=== PATIENT | male | born 1935 | race Caucasian/White ===

== ENCOUNTER 2020-11-22 16:19 | Inpatient (IN) | payer MEDICARE ==
[~2020-11-22] VITALS: Ht 170.2 cm; Wt 86.8 kg
[~2020-11-22 16:19] MED LIST: PROTONIX40 M2 PO
--- NOTE | 2020-11-22 17:05 | NUR ---
PT TO ROOM # 11 VIA W/C FOR BEDSIDE TRIAGE
--- NOTE | 2020-11-22 17:39 | NUR ---
BEDSIDE WITH PATIENT
[2020-11-22 17:45] LABS: HEMATOCRIT 34.1 % (39.0-50.0); HEMOGLOBIN 11.7 g/dl (14.0-18.0); IMMATURE GRANULOCYTES 1.4 % (0.0-5.0); MEAN CELL VOLUME 87.9 fL CALC (80.0-100.0); MEAN CORPUSCULAR HGB 30.2 pG CALC (26.0-32.0); MEAN CORPUSCULAR HGB CONC 34.3 g/dL CAL (32.0-36.0); NEUT# 13.1 thou/uL (1.82-7.42); RED BLOOD COUNT 3.88 mill/uL (4.70-6.10); RED CELL DISTRI WIDTH 12.6 % (11.5-15.5)
[2020-11-22 18:00] LABS: ALBUMIN 3.9 g/dL (3.2-5.0); BUN 11 mg/dL (8-23); BUN/CREATININE RATIO 16 (12-20 (CALC)); CARBON DIOXIDE 29 mmol/l (22-30); CREATININE 0.7 mg/dL (0.7-1.3); GFR > 60 ML/MIN (>=60 (CALC)); GFR FOR AFR.AMER. > 60 ML/MIN (>=60 (CALC)); POTASSIUM 4.8 mmol/l (3.5-5.1); SGOT/AST 26 u/l (19-48); TOTAL PROTEIN 7.6 g/dL (6.3-8.2)
[2020-11-22 18:04] LABS: ALKALINE PHOSPHATASE 109 u/l (38-126); ANION GAP 13 (6-22 (CALC)); BILIRUBIN, TOTAL 0.5 mg/dL (0.0-1.4); CHLORIDE 81 mmol/l (95-108); SODIUM 118 mmol/l (137-146)
[2020-11-22 18:21] LABS: URINE BILIRUBIN - DIPSTICK NEGATIVE (NEGATIVE); URINE BLOOD DIPSTICK NEGATIVE (NEGATIVE); URINE COLOR YELLOW; URINE GLUCOSE - DIPSTICK NEGATIVE (NEGATIVE); URINE KETONE NEGATIVE (NEGATIVE); URINE LEUK ESTERASE NEGATIVE (NEGATIVE); URINE NITRITE - DIPSTICK NEGATIVE (Negative); URINE PROTEIN - DIPSTICK 100 mg/dL (NEG-TRACE); URINE SPECIFIC GRAVITY >=1.030; URINE UROBILINOGEN - DIPSTICK 0.2 E.U./dL (0.2)
[2020-11-22 18:24] LABS: URINE RBC 0-2 RBC/hpf (0-5); URINE WBC 0-2 WBC/hpf (0-5)
--- NOTE | 2020-11-22 19:11 | NUR ---
REPORT TO NIGHT NURSE
--- NOTE | 2020-11-22 19:15 | NUR ---
COVID SWAB COLLECTED
--- NOTE | 2020-11-22 19:16 | NUR ---
IN ROOM INTRODUCED SELF TO TO PT. AND , NO C/O AT THIS TIME. V/S STABLE.
--- NOTE | 2020-11-22 20:20 | NUR ---
PT. INCONTINENT OF A MODERATE AMT. OF URINE, JUAN F CARE GIVEN.
--- NOTE | 2020-11-22 20:55 | NUR ---
UNABLE TO OBTAIN PT. HOME MEDS AT THIS TIME.
--- NOTE | 2020-11-22 21:55 | NUR ---
NO C/O AT THIS TIME, V/S STABLE. IVF INFUSING WELL, NO REDNESS OR EDEMA NOTED.
--- NOTE | 2020-11-22 22:21 | NUR ---
PT. MOVED TO ROOM 10 IN A REGULAR HOSPITAL BED FOR COMFORT.
--- NOTE | 2020-11-23 01:23 | NUR ---
RESTING QUIETLY EYES CLOSED, NO C/O AT THIS TIME. V/S STABLE.
--- NOTE | 2020-11-23 02:14 | NUR ---
PT. INCONTINENT OF A MODERATE AMT. OF URINE, JUAN F CARE GIVEN.
--- NOTE | 2020-11-23 07:01 | NUR ---
REPORT TO LUIS ARMANDO WOODRUFF.
[2020-11-23 07:45] VITALS: BP 155/72
--- NOTE | 2020-11-23 07:45 | NUR ---
REPORT RECEIVED FROM RANJAN DURÁN. [facility] PATIENT LOCATED CURRENTLY IN ER 10. 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 DENIES PAIN, BUT C/O MILD DISCOMFORT TO LEFT FOREHEAD, SHOULDER, AND HIP FROM PRIOR FALL. RESPIRATIONS EVEN AND UNLABORED ON ROOM AIR. ADMISSION ASSESSMENT COMPLETED. POC DISCUSSED. PT ENCOURAGED TO VERBALIZE CONCERNS. STATES UNDERSTANDING. SAFETY MEASURES IN PLACE. CALL LIGHT WITHIN REACH.
[2020-11-23 08:02] LABS: HEMATOCRIT 29.9 % (39.0-50.0); HEMOGLOBIN 10.2 g/dl (14.0-18.0); IMMATURE GRANULOCYTES 1.8 % (0.0-5.0); MEAN CELL VOLUME 88.5 fL CALC (80.0-100.0); MEAN CORPUSCULAR HGB 30.2 pG CALC (26.0-32.0); MEAN CORPUSCULAR HGB CONC 34.1 g/dL CAL (32.0-36.0); NEUT# 12.41 thou/uL (1.82-7.42); RED BLOOD COUNT 3.38 mill/uL (4.70-6.10); RED CELL DISTRI WIDTH 12.5 % (11.5-15.5)
--- NOTE | 2020-11-23 08:35 | NUR ---
PT PLACED CALL LIGHT FOR ASSISTANCE WITH URINAL; HAS URGENCY AND STRESS INCONTINENCE; LINENES CHANGED; PT VOIDING CLOUDY YELLOW URINE. NOW SITTING UP IN HIGH FOWLERS EATING BREAKFAST.
[2020-11-23 08:43] LABS: ALKALINE PHOSPHATASE 79 u/l (38-126); BILIRUBIN, TOTAL 0.5 mg/dL (0.0-1.4); BUN 8 mg/dL (8-23); BUN/CREATININE RATIO 15 (12-20 (CALC)); CARBON DIOXIDE 27 mmol/l (22-30); CHLORIDE 86 mmol/l (95-108); CREATININE 0.5 mg/dL (0.7-1.3); GFR > 60 ML/MIN (>=60 (CALC)); GFR FOR AFR.AMER. > 60 ML/MIN (>=60 (CALC)); POTASSIUM 4.8 mmol/l (3.5-5.1); SGOT/AST 16 u/l (19-48)
[2020-11-23 08:49] LABS: ALBUMIN 2.6 g/dL (3.2-5.0); ANION GAP 11 (6-22 (CALC)); SODIUM 119 mmol/l (137-146); TOTAL PROTEIN 5.1 g/dL (6.3-8.2)
--- NOTE | 2020-11-23 10:40 | NUR ---
PHYSICAL THERAPY AT BEDSIDE FOR EVAL.
--- NOTE | 2020-11-23 11:38 | NUR ---
DR. SPAULDING AT BEDSIDE.
[2020-11-23] MEDS ORDERED: TAMSULOSIN0.4 MG PO (11:58)
[2020-11-23] MEDS ORDERED: VALSARTAN80 MG PO (11:58)
[2020-11-23] MEDS ORDERED: LUPRON DEPOT22.5 MG IM (12:00)
[2020-11-23 13:16] VITALS: BP 147/71
--- NOTE | 2020-11-23 13:22 | NUR ---
TRANSPORTED TO [facility] ROOM 277 VIA BED IN STABLE CONDITION. TELE BOX APPLIED AND CONFIRMED. ORIENTED TO NEW ROOM AND CALL LIGHT SYSTEM.
--- NOTE | 2020-11-23 13:49 | NUR ---
UP TO BSC FOR BOWEL MOVEMENT; PT DID NOT HAVE BM AT THIS TIME. SLIGHTLY MORE CONFUSED; ANSWERS QUESTIONS, BUT NOT WITH NOT COMPLETE APPROPRIATE ANSWER. REMAINED WITH PT WHILE ON BSC AND ASSISTED BACK INTO BED. IV FLUIDS INFUSING WITHOUT DIFFICULTY; IV SITE APPEARS HEALTHY. C/O LEFT SHOULDER PAIN; MOBILITY TO LEFT ARM EFFECTED BY SHOULDER PAIN. NEURO CHECK OTHERWISE WNL FOR PATIENT.
[2020-11-23 15:33] VITALS: BP 167/79
[2020-11-23 19:00] VITALS: BP 167/95
--- NOTE | 2020-11-23 19:00 | NUR ---
REPORT RECEIVED FROM Tino BRADLEY RN, CARE OF PT ASSUMED AT THIS TIME.
--- NOTE | 2020-11-23 21:30 | NUR ---
PT LAYING IN BED WATCHING TV. PHYSICAL ASSESMENT COMPLETE. SCHEDULED MEDICATIONS ADMINISTERED, SEE E-MAR. PT MADE AWARE URINE SAMPLE NEEDS TO BE COLLECTED. PT HAS BEEN EXPERIENCING URINARY URGENCY AND INCONTINENCE. PT REQUEST ASSIST TO STAND AND ATTEMPT TO USE URINAL. WHILE ATTEMPTING TO STAND WITH ASSIST PT REPORTS HE FEELS DIZZY AND WEAK. PT ASSISTED TO LAY DOWN IN BED. URINAL PROPPED IN PLACE TO ATTEMPT TO COLLECT URINE SAMPLE. PLAN OF CARE REVIEWED, PT VERBALIZES UNDERSTANDING AND DENIES QUESTIONS. DENIES NEEDS AT THIS TIME. CALL VAN WITHIN REACH, AGREES TO CALL PRN. AGREES NOT TO ATTEMPT TO GET OOB. BED LOCKED IN LOW POSITION WITH BEDRAILS UP X2.
--- NOTE | 2020-11-24 | NUR ---
PT APPEARS TO BE SLEEPING COMFORTABLY, LAYING IN BED WITH EYES CLOSED, RESPIRATIONS REGULAR AND UNLABORED, NO APPARENT DISTRESS. CALL VAN REMAIN WITHIN REACH.
[2020-11-24 00:06] VITALS: BP 141/72
--- NOTE | 2020-11-24 04:30 | NUR ---
EDUARDO PRESS CATCHER IN ROOM TO DRAW AM LABS
[2020-11-24 05:55] VITALS: BP 142/72
[2020-11-24 06:33] LABS: ALBUMIN 2.7 g/dL (3.2-5.0); BUN 8 mg/dL (8-23); CARBON DIOXIDE 24 mmol/l (22-30); CHLORIDE 86 mmol/l (95-108); CREATININE 0.6 mg/dL (0.7-1.3); GFR > 60 ML/MIN (>=60 (CALC)); GFR FOR AFR.AMER. > 60 ML/MIN (>=60 (CALC)); POTASSIUM 4.8 mmol/l (3.5-5.1)
[2020-11-24 06:44] LABS: SODIUM 119 mmol/l (137-146)
[2020-11-24 07:15] VITALS: BP 140/70
--- NOTE | 2020-11-24 07:15 | NUR ---
PATIENT IN BED AWAKE AT THIS TIME ALERT TO NAME AND PLACE PATIENT CONFUSED ON YEAR AT THIS TIME THEN PATIENT RECANTED AND STATED THE CORRECT YEAR. SIDERAILS ARE UP X 3 CALL LIGHT IS WITHIN REACH STOCK OR DELIVERY CLERK DONE SEE INTERVENTIONS. PATIENT EXHIBITS BILATERAL LOWER LEG EDEMA 3+ GREATER IN LEFT LEG. PATIENT DENIES ANY PAIN AT THIS TIME.
[2020-11-24 10:58] VITALS: BP 148/77
--- NOTE | 2020-11-24 12:03 | NUR ---
PATIENT LAYING IN BED AT THIS TIME EATING LUNCH. CALL LIGHT IS WITHIN REACH AND SIDERAILS UP X3 WITH BED ALARM ACTIVATED. PATIENT DENEIES ANY PAIN AT THIS TIME.
--- NOTE | 2020-11-24 14:34 | NUR ---
PT NOTE Patient was supine as entered room. Patient agreed to participate in minimal bed exercises, stated he was too tired to stand. Patient executed ankle pumps, heel slides, hip abduction and straight leg raises to comfort. Patient executed exercises w/ MIN-MOD verbal cues for correct form. Attempted to encourage patient to seat at bed side to stand and he did not agree. Patient has lower extremity weakness. Tray table and call reeves by patient side as exited room. AMPAC 6 score- 12 not able to fully get full AMPAC due to not standing. --termite control technician facility
[2020-11-24 14:41] VITALS: BP 157/88
--- NOTE | 2020-11-24 16:31 | NUR ---
PATIENT UP TO BEDSIDE COMMODE AT THIS TIME PATIENT ALERT TO SELF AND PLACE AND IS CONFUSED TO DATE AND TIME. PATIENT NEURO CHECKS REMAIN UNCHANGED FROM PREVIOUS CHECK. CALL LIGHT IS WITHIN REACH, BED ALARM DETECTIVE BOWLING ALLEY SIDERAILS ARE UP X 2. PATIENT MOVING TO ROOM CLOSER TO NURSES STATION.
[2020-11-24 19:00] VITALS: BP 160/80
--- NOTE | 2020-11-24 19:00 | NUR ---
REPORT RECEIVED FROM Audrey RIOS RN, CARE OF PT ASSUMED AT THIS TIME.
--- NOTE | 2020-11-24 20:30 | NUR ---
PT SUPINE IN BED, AWAKE AND CALM, NO APPARENT DISTRESS. PHYSICAL ASSESMENT COMPLETE. SCHEDULED MEDICATIONS ADMINISTERED, SEE E-MAR. PLAN OF CARE REVIEWED WITH PT, PT IS [place] AND HAS COGNITIVE LIMITATIONS RELATED TO MEMORY. WILL NEED FREQUENT REVIEW OF CARE PLAN. AT THIS TIME PT VERBALIZES UNDERSTANDING AND DENIES QUESTIONS. DENIES NEEDS AT THIS TIME. CALL VAN WITHIN REACH, AGREES TO CALL PRN.
[2020-11-25] VITALS: BP 143/67
--- NOTE | 2020-11-25 | NUR ---
PT APPEARS TO BE SLEEPING COMFORTABLY, LAYING IN BED WITH EYES CLOSED, RESPIRATIONS REGULAR AND UNLABORED, NO APPARENT DISTRESS. CALL VAN REMAIN WITHIN REACH. BED ALARM ON. BED REMAINS LOCKED IN LOW POSITION WITH BEDRAILS UP X2.
[2020-11-25 04:00] VITALS: BP 140/78
--- NOTE | 2020-11-25 04:00 | NUR ---
PT APPEARS TO BE SLEEPING COMFORTABLY, LAYING IN BED WITH EYES CLOSED, RESPIRATIONS REGULAR AND UNLABORED, NO APPARENT DISTRESS. CALL VAN REMAIN WITHIN REACH. BED REMAINS LOCKED IN LOW POSITION WITH BEDRAIL UP X2.
[2020-11-25 06:23] LABS: HEMATOCRIT 30.6 % (39.0-50.0); HEMOGLOBIN 10.4 g/dl (14.0-18.0); IMMATURE GRANULOCYTES 1.2 % (0.0-5.0); MEAN CELL VOLUME 88.7 fL CALC (80.0-100.0); MEAN CORPUSCULAR HGB 30.1 pG CALC (26.0-32.0); NEUT# 13.65 thou/uL (1.82-7.42); RED BLOOD COUNT 3.45 mill/uL (4.70-6.10); RED CELL DISTRI WIDTH 12.7 % (11.5-15.5)
[2020-11-25 06:51] LABS: ANION GAP 11 (6-22 (CALC)); BUN 10 mg/dL (8-23); BUN/CREATININE RATIO 20 (12-20 (CALC)); CARBON DIOXIDE 24 mmol/l (22-30); CHLORIDE 88 mmol/l (95-108); CREATININE 0.5 mg/dL (0.7-1.3); GFR > 60 ML/MIN (>=60 (CALC)); GFR FOR AFR.AMER. > 60 ML/MIN (>=60 (CALC)); POTASSIUM 4.4 mmol/l (3.5-5.1)
[2020-11-25 07:00] LABS: SODIUM 119 mmol/l (137-146)
[2020-11-25 07:45] VITALS: BP 144/79
--- NOTE | 2020-11-25 07:45 | NUR ---
PATIENT SITTING UP IN BED AT THIS TIME. PATIENT IS ALERT TO NAME AND PLACE AN MONTH AT THIS TIME. PATIENT DENEIS ANY PAIN AND BILATERAL LOWER LEGS REMAIN AT 2+ EDEMA AT THIS TIME. SWELLING OVER RIGHT EYE DUE TO FALL PRIOR TO ADMISSION IS BARELY NOTED AT THIS TIME. SIDERAILS ARE UP CALL LIGHT WITHIN REACH TELE MONITORED IN PLACE.
--- NOTE | 2020-11-25 09:40 | NUR ---
PATIENT TAKEN DOWN TO [facility] FOR A CTA THIS TIME. PER WHEELCHAIR.
--- NOTE | 2020-11-25 10:08 | NUR ---
PATIENT RETURNED FROM [facility] AT THIS TIME. PATIENT DOES NOT WANT HEARING AIDS PLACED IN EARS AT THIS TIME.
[2020-11-25 10:55] VITALS: BP 135/76
--- NOTE | 2020-11-25 11:46 | NUR ---
PATIENT SITTING UP IN CHAIR AT THIS TIME. PATIENT NEURO CHECKS REMAIN UNCHANGED. GRASP ARE STRONG PATIENT IS ALERT TO NAME AND PLACE CONFUSED TO TIME AND YEAR AND MONTH. PATIENT WHEN ASKED STATES HE HAS NO PAIN. PATIENT REFUSES TO ALLOW STAFF TO PLACE HEARING AIDE IN EARS AT THIS TIME. CALL LIGHT IS WITHIN REACH OF PATIENT AND PERSONAL ITEMS WITHIN REACH.
--- NOTE | 2020-11-25 13:15 | NUR ---
Pt. seen this morning (8:30AM) for functional activity of transfer training. While long sitting in bed and with verbal encouragement and tactile cues the patient is able to move his legs to the edge of bed. At edge of bed pt. able to scoot and maintain static seated balance. Sit to stand performed with bed elevated and pt. using railing for push off x2 trials with min. assist x 1. On 3rd trial pt. provided with min. assist x 2 for guarding and instruction for turning and side stepping toward wheelchair that awaited him to go down to radiology escorted by his attending SEAM TAPER MACHINE. Pt. reminded to reach back with his hands for the wheelchair armrests to lower himself into wheelchair. Poor eccentric control is noted. Post transfer training pt. left with his attending SEAM TAPER MACHINE, leg rest provided and he was without questions/concerns. AMPAC score 12.
[2020-11-25 14:36] VITALS: BP 143/77
--- NOTE | 2020-11-25 15:49 | NUR ---
PATIENT RESTING IN BED AT THIS TIME. CALL LIGHT AND PERSONAL ITEMS WITHIN REACH. SIDERAILS ARE UP X3. BED ALARM ON AT THIS TIME. PATIENT DENIES ANY PAIN.
[2020-11-25 16:39] LABS: HEMATOCRIT 30.2 % (39.0-50.0); HEMOGLOBIN 10.1 g/dl (14.0-18.0); IMMATURE GRANULOCYTES 1.4 % (0.0-5.0); MEAN CELL VOLUME 89.1 fL CALC (80.0-100.0); MEAN CORPUSCULAR HGB 29.8 pG CALC (26.0-32.0); MEAN CORPUSCULAR HGB CONC 33.4 g/dL CAL (32.0-36.0); NEUT# 15.87 thou/uL (1.82-7.42); RED BLOOD COUNT 3.39 mill/uL (4.70-6.10); RED CELL DISTRI WIDTH 12.7 % (11.5-15.5)
--- NOTE | 2020-11-25 19:00 | NUR ---
REPORT RECEIVED FROM Audrey RIOS RN, CARE OF PT ASSUMED AT THIS TIME.
[2020-11-25 19:30] VITALS: BP 142/72
--- NOTE | 2020-11-25 19:48 | NUR ---
CONFERENCE CALL HELD WITH PT'S SPOUSE AND DAUGHTER WHOM IDENTIFIES HERSELF AN RN. DAUGHTER QUESTIONS IF ABX WOULD BE APPROPRIATE FOR PT. CONCERNS REGARDING DISCHARGE PLANNING ARE ALSO RAISED AND AND DAUGHTER ARE REQUESTING FOR TO BE ABLE TO VISIT PT. EXPLAINED THAT EXCEPTIONS TO VISITING POLICY WOULD HAVE TO BE ENDORSED TO ADMINISTRATION IN AM AND OTHER CONCERNS WOULD BE DISCUSSED WITH PROVIDER AND RETURN CALL COULD BE PROVIDED WITH UPDATES AFTERWARDS. DAUGHTER AND SPOUSE AGREE.
--- NOTE | 2020-11-25 20:25 | NUR ---
PT SUPINE IN BED, AWAKE AND CALM, NO APPARENT DISTRESS. PHYSICAL ASSESMENT COMPLETE. SCHEDULED MEDICATIONS ADMINISTERED, SEE E-MAR. PLAN OF CARE REVIEWED WITH PT, PT IS [place] AND HAS COGNITIVE LIMITATIONS RELATED TO MEMORY. WILL NEED FREQUENT REVIEW OF CARE PLAN. AT THIS TIME PT VERBALIZES UNDERSTANDING AND DENIES QUESTIONS. DENIES NEEDS AT THIS TIME. CALL VAN WITHIN REACH, AGREES TO CALL PRN.
--- NOTE | 2020-11-25 20:30 | NUR ---
FAMILIES CONCERNS DISCUSSED WITH Jose WILSON APRN, ORDERS FOR ABX ABD CASE MANAGMENT CONSULT RECEIVED.
--- NOTE | 2020-11-25 21:33 | NUR ---
UPDATES AND CHANGES TO PLAN OF CARE PROVIDED TO PT'S DAUGHTER.
[2020-11-26 00:15] VITALS: BP 138/76
[2020-11-26 04:35] VITALS: BP 146/86
[2020-11-26 05:41] LABS: HEMATOCRIT 30.2 % (39.0-50.0); HEMOGLOBIN 9.9 g/dl (14.0-18.0); MEAN CELL VOLUME 89.1 fL CALC (80.0-100.0); MEAN CORPUSCULAR HGB 29.2 pG CALC (26.0-32.0); MEAN CORPUSCULAR HGB CONC 32.8 g/dL CAL (32.0-36.0); RED BLOOD COUNT 3.39 mill/uL (4.70-6.10); RED CELL DISTRI WIDTH 12.8 % (11.5-15.5)
[2020-11-26 06:15] LABS: ALBUMIN 2.7 g/dL (3.2-5.0); ANION GAP 13 (6-22 (CALC)); BUN 12 mg/dL (8-23); BUN/CREATININE RATIO 21 (12-20 (CALC)); CARBON DIOXIDE 28 mmol/l (22-30); CHLORIDE 83 mmol/l (95-108); CREATININE 0.6 mg/dL (0.7-1.3); GFR > 60 ML/MIN (>=60 (CALC)); GFR FOR AFR.AMER. > 60 ML/MIN (>=60 (CALC)); MAGNESIUM 1.9 mg/dL (1.6-2.3); POTASSIUM 4.6 mmol/l (3.5-5.1); SODIUM 120 mmol/l (137-146)
[2020-11-26 07:30] VITALS: BP 144/86
--- NOTE | 2020-11-26 07:30 | NUR ---
PATIENT IN BED AT THIS TIME PATIENT IS ALERT TO NAME AND PLACE BUT IS CONFUSED ON TIME. PATIENT SHOWS BILATERAL 2+ LOWER EDEMA ON LEGS. LUNG FIELD ARE CLEAR. MANAGER CUSTOMS DONE AT THIS TIME CALL LIGHT AND PERSONAL ITEMS ARE WITHIN REACH SIDERAILS ARE UP X 2
--- NOTE | 2020-11-26 10:43 | NUR ---
PT note Patient is seen for transfer and functional training with strengthening He wored on bed mobility and transfers bed to chair. He required mod assist of 2 to complete transitional movemetns. His standing balance is poor and stand to sit requires VC with max assist. His Am Pac score is unchanged and he would be a great short term rehab condidate to maximize independence and reduce his burden of care Our plan is to continue physical therapy for strengthening and transfer training with pre- gait activities
[2020-11-26 10:55] VITALS: BP 139/79
--- NOTE | 2020-11-26 12:09 | NUR ---
PATIENT SITTING IN BED AT THIS TIME EATING LUNCH. PATIENT ALERT TO NAME AND PLACE BUT REMAINS CONFUSED ON DAY, TIME. SIDERAILS ARE UP X2 CALL LIGHT AND PERSONAL ITEMS WITHIN REACH.
[2020-11-26 15:07] VITALS: BP 130/66
--- NOTE | 2020-11-26 19:00 | NUR ---
REPORT RECEIVED FROM Audrey RIOS RN, CARE OF PT ASSUMED AT THIS TIME.
[2020-11-26 19:45] VITALS: BP 144/67
--- NOTE | 2020-11-26 20:15 | NUR ---
PT SUPINE IN BED, AWAKE AND CALM, NO APPARENT DISTRESS. PHYSICAL ASSESMENT COMPLETE. SCHEDULED MEDICATIONS ADMINISTERED, SEE E-MAR. PLAN OF CARE REVIEWED WITH PT, PT IS [place] AND HAS COGNITIVE LIMITATIONS RELATED TO MEMORY. WILL NEED FREQUENT REVIEW OF CARE PLAN. AT THIS TIME PT VERBALIZES UNDERSTANDING AND DENIES QUESTIONS. DENIES NEEDS AT THIS TIME. CALL VAN WITHIN REACH, AGREES TO CALL PRN.
[2020-11-27 00:10] VITALS: BP 139/73
[2020-11-27 04:25] VITALS: BP 146/67
[2020-11-27 05:37] LABS: HEMATOCRIT 29.7 % (39.0-50.0); HEMOGLOBIN 9.9 g/dl (14.0-18.0); IMMATURE GRANULOCYTES 2.2 % (0.0-5.0); MEAN CELL VOLUME 89.2 fL CALC (80.0-100.0); MEAN CORPUSCULAR HGB 29.7 pG CALC (26.0-32.0); MEAN CORPUSCULAR HGB CONC 33.3 g/dL CAL (32.0-36.0); NEUT# 13.69 thou/uL (1.82-7.42); RED BLOOD COUNT 3.33 mill/uL (4.70-6.10); RED CELL DISTRI WIDTH 12.8 % (11.5-15.5)
[2020-11-27 06:19] LABS: ALBUMIN 2.5 g/dL (3.2-5.0); ALKALINE PHOSPHATASE 75 u/l (38-126); ANION GAP 12 (6-22 (CALC)); BILIRUBIN, TOTAL 0.5 mg/dL (0.0-1.4); BUN 14 mg/dL (8-23); BUN/CREATININE RATIO 27 (12-20 (CALC)); CARBON DIOXIDE 28 mmol/l (22-30); CHLORIDE 85 mmol/l (95-108); CREATININE 0.5 mg/dL (0.7-1.3); GFR > 60 ML/MIN (>=60 (CALC)); GFR FOR AFR.AMER. > 60 ML/MIN (>=60 (CALC)); POTASSIUM 4.6 mmol/l (3.5-5.1); SGOT/AST 21 u/l (19-48); SODIUM 120 mmol/l (137-146); TOTAL PROTEIN 5.1 g/dL (6.3-8.2)
--- NOTE | 2020-11-27 07:00 | NUR ---
SHIFT CHANGE REPORT, PT RESTING IN BED, AWAKE ALERT AND ORIENTED, NO C/O DISCOMFORT AT THIS TIME, IVF INFUSING, TELE MONITOR IN PLACE, CALL VAN IN REACH.
[2020-11-27 08:34] VITALS: BP 139/80
--- NOTE | 2020-11-27 12:56 | NUR ---
SITTING UP IN RECLINER JUST BEGINNING TO EAT MEAL, C/O CHOKING AND VOMITTING , BREATHING, TALKING AND SPEECH ARE NORMAL,STATES HE HAS PIECE OF MEAT STUCK IN HIS THROAT. ADVISED TO HAVE SIP OF WATER BUT REFUSED STATING IT WILL NOT GO DOWN. CHEY VAZQUEZ NOTIFIED AND WROTE ORDERS, PT THEN HAD SIPS OF WATER WHICH HE SWALLOWED WITHOUT DIFFICULTY, INFORMED OF NEW ORDERS BUT STATES HE CAH SWALLOW NOW AND DOES NOT WANT TO HAVE AN X-RAY HE HAS SWALLED MEAT IN THROAT AND FEELS OK NOW. HE ALSO STATES HE HAS HAD THIS CONDITION BEFORE AND HAD HIS THROAT STRETCHED. HE WILL NOT HAVE AN X-RAY HE REFUSED, CHEY NOTIFIED. SPOUSE IS HERE AT TIS TIME AND CONFORMS THIS IS NOT A NEW OR UNIQUE CONDITION WITH PT, WILL CONTINUE TO MONITOR.
--- NOTE | 2020-11-27 16:00 | NUR ---
SITTING UP IN RECLINER, ALL NEEDS ADDRESSED, CALL VAN IN REACH.
[2020-11-27 16:13] VITALS: BP 122/60
--- NOTE | 2020-11-27 17:00 | NUR ---
REQUESTING TO BE ASSISTED BACK TO BED, REQUEST HONORED, CALL VAN IN REACH.
[2020-11-27 20:00] VITALS: BP 138/70
[2020-11-27 23:45] VITALS: BP 116/63
--- NOTE | 2020-11-28 01:57 | NUR ---
PATIENT IS ALERT AND ORIENTED X3 WITH INTERMITENT CONFUSION AND FORGETFULNESS. C/O PAIN ADDRESSED WITH PRN TYLENOL WITH POSITIVE EFFECT. VAD #20 RW S/L. PATENT. CONTINUES ON A 1500ML FLUID RESTRICTION. ON TELEMETRY RUNNING SR WITH 1ST DEGREE AVB AND IVCD. PATIENT KEPT ASKING FOR HIS OXYGEN. I EDUCATED PATIENT ON USE OF OXYGEN. BED IN LOW POSITION. CALL LIGHT WITHIN REACH.
[2020-11-28 04:00] VITALS: BP 126/70
[2020-11-28 05:14] LABS: HEMOGLOBIN 9.8 g/dl (14.0-18.0); IMMATURE GRANULOCYTES 2.5 % (0.0-5.0); MEAN CELL VOLUME 89.6 fL CALC (80.0-100.0); MEAN CORPUSCULAR HGB 29.3 pG CALC (26.0-32.0); MEAN CORPUSCULAR HGB CONC 32.7 g/dL CAL (32.0-36.0); NEUT# 13.77 thou/uL (1.82-7.42); RED BLOOD COUNT 3.35 mill/uL (4.70-6.10); RED CELL DISTRI WIDTH 12.9 % (11.5-15.5)
[2020-11-28 05:43] LABS: ANION GAP 11 (6-22 (CALC)); BUN 14 mg/dL (8-23); BUN/CREATININE RATIO 28 (12-20 (CALC)); CARBON DIOXIDE 27 mmol/l (22-30); CHLORIDE 87 mmol/l (95-108); CREATININE 0.5 mg/dL (0.7-1.3); GFR > 60 ML/MIN (>=60 (CALC)); GFR FOR AFR.AMER. > 60 ML/MIN (>=60 (CALC)); MAGNESIUM 1.8 mg/dL (1.6-2.3); POTASSIUM 4.3 mmol/l (3.5-5.1); SODIUM 121 mmol/l (137-146)
--- NOTE | 2020-11-28 07:00 | NUR ---
SHIFT CHANGE REPORT, PT AWAKE ALERT AND ORIENTED SITTING UP IN BED, NO C/O DISCOMFORT AT THIS TIME, TELE MONITOR IN PLACE, BED LOCKED IN LOWEST POSITION AND CALL VAN IN REACH.
[2020-11-28 07:38] VITALS: BP 142/67
--- NOTE | 2020-11-28 11:04 | NUR ---
TRANSPORTED OFF UNIT EARLIER FOR BRAIN CT AFTER INFORMED OF PROCEDURE AND STATED UNDERSTANDING, JUST RETURNED TO UNIT AND SETTLED IN BED, CALL VAN IN REACH.
[2020-11-28 11:17] VITALS: BP 132/65
--- NOTE | 2020-11-28 12:30 | NUR ---
RELAXING IN BED, ALL NEEDS ADDRESSED, SPOUSE VISITING.
[2020-11-28 15:33] VITALS: BP 139/66
--- NOTE | 2020-11-28 16:20 | NUR ---
SLEEPING IN RECLINER AT THIS TIME, NO SIGN DISCOMFORT, CALL VAN IN REACH.
--- NOTE | 2020-11-28 19:43 | NUR ---
SBAR REPORT RECEIVED FROM RANJAN SCOTT. PATIENT QUIETLY WATCHING TV IN BED. NO DISTRESS NOTED. CALL LIGHT WITHIN REACH.
[2020-11-28 20:00] VITALS: BP 154/84
[2020-11-29] VITALS: BP 134/75
--- NOTE | 2020-11-29 00:34 | NUR ---
RESTING QUIETLY IN BED. PATIENT AWAKE. DENIES PAIN AT THIS TIME. NO DISTRESS NOTED. CALL LIGHT WITHIN REACH.
[2020-11-29 04:00] VITALS: BP 136/80
[2020-11-29 05:21] LABS: HEMATOCRIT 29.4 % (39.0-50.0); HEMOGLOBIN 9.7 g/dl (14.0-18.0); MEAN CELL VOLUME 89.4 fL CALC (80.0-100.0); MEAN CORPUSCULAR HGB 29.5 pG CALC (26.0-32.0); RED BLOOD COUNT 3.29 mill/uL (4.70-6.10)
--- NOTE | 2020-11-29 05:49 | NUR ---
CONTINUES TO REST QUIETLY IN BED. NO DISTRESS NOTED, CALL LIGHT WITHIN REACH.
[2020-11-29 06:11] LABS: ANION GAP 9 (6-22 (CALC)); BUN 22 mg/dL (8-23); BUN/CREATININE RATIO 44 (12-20 (CALC)); CARBON DIOXIDE 29 mmol/l (22-30); CHLORIDE 86 mmol/l (95-108); CREATININE 0.5 mg/dL (0.7-1.3); GFR > 60 ML/MIN (>=60 (CALC)); GFR FOR AFR.AMER. > 60 ML/MIN (>=60 (CALC)); MAGNESIUM 1.8 mg/dL (1.6-2.3); POTASSIUM 4.3 mmol/l (3.5-5.1); SODIUM 120 mmol/l (137-146)
[2020-11-29 08:00] VITALS: BP 136/84
--- NOTE | 2020-11-29 08:15 | NUR ---
PATIENT RESTING IN BED DENEIS ANY PAIN SIDERAILS ARE UP CALL LIGHT WITHIN REACH BED ALARM ON. FLOOR INSTALLATION MECHANIC DONE AT THIS TIME. PATIENT ALERT TO NAME AND PLACE PATIENT HAS TRACE EDEMA ON BILATERAL FEET. PATIENT NPO FOR MODIFY SWALLOW EVAL TODAY.
[2020-11-29 11:00] VITALS: BP 150/73
--- NOTE | 2020-11-29 12:00 | NUR ---
PATIENT IN CHAIR AT THIS TIME CALL LIGHT AND PERSONAL ITEMS WITHIN REACH DENIES ANY PAIN AT THIS TIME.
--- NOTE | 2020-11-29 13:05 | NUR ---
IN TO SEE PATIENT AT THIS TIME. ASKED IF SHE COULD STAY FOR A "FEW" HOURS AND VISTIATION POLICY GONE OVER WITH PATIENT AND AT THIS TIME.
--- NOTE | 2020-11-29 13:35 | NUR ---
PHYSICAL THERAPY IN TO SEE PATIENT. THERAPIST STATED THAT PATIENT WALKED APPROXIMATELY 15-20 FEET TODAY.
--- NOTE | 2020-11-29 13:38 | NUR ---
Attempted to see pt. Pt in radiology for esophagram. F/u d/t findings in barium swallow study.
--- NOTE | 2020-11-29 13:48 | NUR ---
Pt seen this pm for treatment. Pt sitting in BS chair with present. He c/o fatigue and feeling weak from not eating much. Pt move sit to and from stand with CGA/min assist and max verbal cues. He was able to ambulate 1 x 10' and 1x 15' with CGA assist and RW. Posture was flexed in trunk and knees. Pt need to use commode chair and transferred using walker/CGA and max verbal cue for safety (push from chair to stand, reach for chair to sit etc). He was left on commode chair with call reeves in reach, present and nursing notified. Gait belt in use and non skid socks. [facility]
--- NOTE | 2020-11-29 16:10 | NUR ---
PHYSICAL THEARPY IN TO HELP PATIENT RETURN BACK TO BED AT THIS TIME. PATIENT BACK IN BED SIDERAILS ARE UP CALL LIGHT IS WITHIN REACH. PATIENT DENIES ANY OTHER NEEDS
[2020-11-29 17:16] VITALS: BP 155/81
[2020-11-29 19:00] VITALS: BP 149/72
--- NOTE | 2020-11-29 20:00 | NUR ---
PATIENT RESTING IN BED AT THIS TIME. PATIENT IS ALERT AND ORIENTED TO PERSON AND BIRTHDATE. PATIENT KNOW THAT HE IS IN THE HOSPITAL BUT THINKS THAT HE IS IN [facility]. REORIENTED TO PLACE AND TIME. PATIENT WITH SALINE LOCK TO RIGHT WRIST. SAFETY PRECAUTIONS REINFORCED. CALL LIGHT IN REACH. WILL CONT TO MONITOR.
--- NOTE | 2020-11-30 00:40 | NUR ---
RESTING IN BED AT THIS TIME WITH EYES CLOSED. RESPS ARE EVEN AND UNLABORED. ANTIBIOTICS COMPLETED VIA RIGHT WRIST IV SITE. SITE REMAINS HEALTHY. CALL LIGHT IN REACH. WILL CONT TO MONITOR.
--- NOTE | 2020-11-30 03:55 | NUR ---
PATIENT RESTING IN BED WITH EYES CLOSED. RESPS ARE EVEN AND UNLABORED. APPEARS SLEEPING IN NO ACUTE DISTRESS. SALINE LOCK TO RIGHT WRIST INTACT. CALL LIGHT IN REACH. WILL CONT TO MONITOR.
[2020-11-30 04:30] VITALS: BP 138/66
[2020-11-30 06:31] LABS: ANION GAP 12 (6-22 (CALC)); BUN 21 mg/dL (8-23); BUN/CREATININE RATIO 39 (12-20 (CALC)); CARBON DIOXIDE 28 mmol/l (22-30); CHLORIDE 86 mmol/l (95-108); CREATININE 0.5 mg/dL (0.7-1.3); GFR > 60 ML/MIN (>=60 (CALC)); GFR FOR AFR.AMER. > 60 ML/MIN (>=60 (CALC)); POTASSIUM 4.5 mmol/l (3.5-5.1); SODIUM 122 mmol/l (137-146)
--- NOTE | 2020-11-30 07:00 | NUR ---
RECIEVED REPORT FROM RANJAN GREWAL.
[2020-11-30 08:28] VITALS: BP 141/74
--- NOTE | 2020-11-30 08:28 | NUR ---
PT RESTING IN SEMI FOWLERS POSITION. PT IS A/O X3 WITH SOME CONFUSION. ASSESSMENT AND VITALS COMPLETED. BP 141/74, HR 86, O2 96% ON ROOM AIR. RESPIRATIONS ARE EVEN AND UNLABORED WITH NO DISTRESS NOTED. LUNG SOUNDS ARE CLEAR. HEART RHYTHM IS NORMAL. BOWEL SOUNDS ARE ACTIVE. RADIAL PULSES STRONG. PEDAL PULSES WEAK. #20G IN RW FLUSHED, SITE APPEARS HEALTHY AND PATENT. PT COMPLAINS OF 10/10 GERNERALIZED PAIN, PT REFUSES TO TAKE ANYTHING TO ASSIST. SKIN IS CDI. PT DENIES OF ANY ADDITIONAL NEEDS. ALL SAFETY PRECAUTIONS ARE IN PLACE WITH CALL LIGHT IN REACH. WILL CONTINUE TO MONITOR.
--- NOTE | 2020-11-30 09:00 | NUR ---
PT AT BEDSIDE
--- NOTE | 2020-11-30 09:54 | NUR ---
DR POP AT BEDSIDE
--- NOTE | 2020-11-30 13:54 | NUR ---
KATIUSKA,ANRP AT BEDSIDE
[2020-11-30 15:18] VITALS: BP 120/66
--- NOTE | 2020-11-30 16:06 | NUR ---
PT SLEEPING IN SEMI FOWLERS POSITION. RESPIRATIONS ARE EVEN AND UNLABORED ON ROOM AIR. #20G IN RW REMAIN HEALTHY AND PATENT. NO SIGNS OF OF ANY PAINS OR DISCOMFORTS AT THIS TIME. ALL SAFETY PRECAUTIONS ARE IN PLACE WITHC ALL LIGHT IN REACH. WILL CONTINUE TO MONITOR.
--- NOTE | 2020-11-30 17:00 | NUR ---
P.T. session included pt transitioning from supine to sitting on EOB with mod assist. In seated position performed LAQ 2x10, isometric hip abduction and adduction. Then mod assist to stand at RW for ambulation in room approx. 10ft Also transfer training from bed to recliner. Pt is unsteady on feet. Pt is a good candidate for short term inpatient rehab in order to decrease fall risk and improve functional mobility. Ampac=13
[2020-11-30 19:00] VITALS: BP 136/69
--- NOTE | 2020-11-30 19:48 | NUR ---
PATIENT RESTING IN BED-AWAKE ALERT AND ORIENTEDX3. PATIENT WITH NO COMPLAINTS AT THIS TIME. PATIENT VOIDED 100CC OF YELLOW URINE IN URINAL. SALINE LOCK TO RIGHT WRIST INTACT-APPEARS HEALTHY AT THIS TIME. PATIENT ANXIOUS FOR TRANSFER TO REHAB [facility] TOMOR[facility]. SAFETY PRECAUTIONS REINFORCED. CALL LIGHT IN REACH. WILL CONT TO MONITOR.
--- NOTE | 2020-11-30 21:59 | NUR ---
PATIENT RESTING IN BED AT THIS TIME-ROCEPHIN HUNG ORDERED AND INFUSING VIA RIGHT WRIST IV SITE. PATIENT HAD EPISODE OF NON-PRODUCTIVE COUGHING AFTER DRINKING PO FLUIDS. HOB ELEVATED AND SX SUBSIDED. CALL LIGHT IN REACH. WILL CONT TO MONITOR.
--- NOTE | 2020-12-01 01:29 | NUR ---
PATIENT RESTING WITH HOB ELEVATED AND EYES CLOSED-RESPS ARE EVEN AND UNLABORED. CALL LIGHT IN REACH. WILL CONT TO MONITOR.
[2020-12-01 04:00] VITALS: BP 148/68
--- NOTE | 2020-12-01 04:01 | NUR ---
PATIENT RESTING IN BED WITH HOB SLIGHTLY ELEVATED. EYES ARE CLOSED, RESPS ARE EVEN AND UNLABORED. CALL LIGHT IN REACH. WILL CONT TO MONITOR.
[2020-12-01 05:14] LABS: HEMATOCRIT 29.3 % (39.0-50.0); HEMOGLOBIN 9.7 g/dl (14.0-18.0); MEAN CELL VOLUME 90.2 fL CALC (80.0-100.0); MEAN CORPUSCULAR HGB 29.8 pG CALC (26.0-32.0); MEAN CORPUSCULAR HGB CONC 33.1 g/dL CAL (32.0-36.0); RED BLOOD COUNT 3.25 mill/uL (4.70-6.10); RED CELL DISTRI WIDTH 13.2 % (11.5-15.5)
[2020-12-01 05:36] LABS: ALBUMIN 2.5 g/dL (3.2-5.0); BUN 31 mg/dL (8-23); CARBON DIOXIDE 30 mmol/l (22-30); CHLORIDE 89 mmol/l (95-108); CREATININE 0.5 mg/dL (0.7-1.3); GFR > 60 ML/MIN (>=60 (CALC)); GFR FOR AFR.AMER. > 60 ML/MIN (>=60 (CALC)); POTASSIUM 4.4 mmol/l (3.5-5.1); SODIUM 124 mmol/l (137-146)
--- NOTE | 2020-12-01 07:00 | NUR ---
RECIEVED REPORT FROM RANJAN GREWAL
[2020-12-01 07:31] VITALS: BP 134/69
--- NOTE | 2020-12-01 07:31 | NUR ---
PT RESTING IN SEMI FOWLERS POSITION. PT IS A/O X2. ASSESSMENT AND VITALS COMPLETED. BP 134/69, HR 90, O2 95% ON ROOM AIR. RESPIRATIONS ARE EVEN AND UNLABORED WITH NO DISRTESS NOTED. HEART RHYTHM NORMAL. BOWEL SOUNDS ARE ACTIVE. RADIAL PLUSES STRONG. PEDAL PULSES WEAK. #20G IN RW FLUSHED, SITE APPEARS HEALTHY AND PATENT.2+ EDEMA NOTED TO BLE. PT DENIES OF ANY PAINS OR DISCOMFORTS AT THIS TIME. ALL SAFETY PRECAUTIONS ARE IN PLACE WITH CALL LIGHT IN REACH . BED ALARM ACTIVATED. WILL CONTINUE TO MONITOR.
--- NOTE | 2020-12-01 08:44 | NUR ---
PHYSICAL THERAPY AT BEDSIDE
--- NOTE | 2020-12-01 08:53 | NUR ---
PT NOTE Patient was in semi-fowlers position as entered room, agreed to participate in therapy session. (MOD A) to a seated position at edge of bed, sit>stand (MIN A) Verbal cues for proper hand placement as he ascends to a standing position. Static standing bslsnce loss of balance noted retro, ambulation through out room to bathroom w/ FWW(30 ft), small stride, decreased hip flexion and loss of balance noted as he ambulates. Stand>sit (MIN A) Verbal cues for proper hand placement as he decends to a seated position. JEWELRY REPAIRER was present as we exited room, she said it will be ok for us to exit. [facility] --short term rehab
--- NOTE | 2020-12-01 09:41 | NUR ---
DR MARLEY AT BEDSIDE
--- NOTE | 2020-12-01 11:29 | NUR ---
PT RESTING IN CHAIR. RESPIRATIONS ARE EVEN AND UNLABORED ON ROOM AIR. #20G IN RW REMAINS IN PLACE. PT STATES "I HAVE TO GO TO [place]." OPERATORS TEACHER REPIRENTED PT TO GOING TO [facility]. 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 PT DENIES OF ANY NEEDS OR DISCOMFORTS AT THIS TIME. ALL SAFETY PRECAUTIONSA RE IN PLACE WITH CALL LIGHT IN REACH AND CHAIR ALARM ACTIVATED. WILL CONTINUE TO MONITOR.
--- NOTE | 2020-12-01 13:10 | NUR ---
PT INFORMED OF NEEDED URINE SAMPLE. ATTEMPTED TO STAND PT UP TO OBTAIN. PT STATED "MAYBE LATER." INSTRUCTED PT TO CALL WHEN NEEDING TO VOID OT OBTAINED SAMPLE. PT VERBALIZED UNDERSTANDING.
--- NOTE | 2020-12-01 14:31 | NUR ---
AT BEDSIDE WITH PT. URINE SAMPLE COLLECTED. PT DENIES OF ANY NEEDS AT THIS TIME. ALL SAFETY PRECAUTIONS ARE IN PLACE WITH CALL LIGHT IN REACH. WILL CONTINUE TO MONITOR.
[2020-12-01 15:25] VITALS: BP 123/65
--- NOTE | 2020-12-01 17:05 | NUR ---
PT RESTING IN SEMI FOWLERS POSITION. UPON ENTERING ROOM AND ASKING PT HOW HE WAS DOING, PT STATED " NOT GOOD. I FEEL TRAPPED TO THE BED AND MY BRAIN IS FRIED." COMPLIANCE DIRECTOR OFFERED GETTING UP TO CHAIR PT REFUSED. COMPLIANCE DIRECTOR STATED " MAYBE ITS JUST BEACSUE YOUR TIRED." PT STATED " WHAT IF I IN MY SLEEP." COMPLIANCE DIRECTOR ASKED WHY HE WOULD IN HIS SLEEP. PT STATED " I DONT KNOW." RESPIRATIONS REMAINS EVEN AND UNLABORED WITH NO DISTRESS. PT DENIES OF ANY REQUEST. ALL SAFETY PRECAUTIONS ARE IN PLACE WITH CALL LIGHT INR EACH. WILL CONTINUE TO MONITOR.
[2020-12-01 19:00] VITALS: BP 141/70
--- NOTE | 2020-12-01 19:29 | NUR ---
REPORT GIVEN BY DUARTE. PATIENT RESTING IN BED. RESP EVEN AND UNLABORED. ALERT AND ORIENTED X 2, CONFUSED TO CONVERSION. FLUID RESTRICT 1.5L. NO S/S OF DISTRESS NOTED. PLAN TO D/C TO [facility] IN [place].
--- NOTE | 2020-12-02 01:08 | NUR ---
PATIENT RESTING WITH EYES CLOSED. FALL AND SAFTEY PRECAUTIONS IN PLACE. NO S/S OF DISTRESS NOTED.
--- NOTE | 2020-12-02 03:55 | NUR ---
PATIENT RESTING WITH EYES CLOSED. FALL AND SAFTEY PRECAUTIONS IN PLACE. NO S/S OF DISTRESS NOTED.
[2020-12-02 04:00] VITALS: BP 146/74
[2020-12-02 06:15] LABS: HEMATOCRIT 29.7 % (39.0-50.0); HEMOGLOBIN 9.8 g/dl (14.0-18.0); IMMATURE GRANULOCYTES 2.2 % (0.0-5.0); MEAN CELL VOLUME 91.1 fL CALC (80.0-100.0); MEAN CORPUSCULAR HGB 30.1 pG CALC (26.0-32.0); NEUT# 13.24 thou/uL (1.82-7.42); RED BLOOD COUNT 3.26 mill/uL (4.70-6.10); RED CELL DISTRI WIDTH 13.3 % (11.5-15.5)
--- NOTE | 2020-12-02 06:50 | NUR ---
RECIEVED REPORT FROM RANJAN BLUE.
[2020-12-02 07:01] VITALS: BP 139/67
--- NOTE | 2020-12-02 07:01 | NUR ---
PT RESTING IN SEMI FOWLERS POSITION. PT IS A/O X2 WITH SOME CONFUSION. ASSESSMENT AND VITALS COMPLETED. BP 139/67, HR 81, O2 94% ON ROOM AIR. REPSIRATIONS ARE EVEN AND UNLABROED WITH NO DISTRESS NOTED. LUNG SOUNDS ARE DIMINISHED. HEART RHYTHM NORMAL. BOWEL SOUNDS ARE ACTIVE. RADIAL PULSES STRONG. PEDAL PULSES WEAK. 2+ EDEMA NOTED TO BLE. SKIN IS COOL AND INTACT. #20G IN RW FLUSHED, SITE APPEARS HEALTHY AND PATENT. PT DENIES OF ANY PAINS OR DISCOMFORTS.ALL SAFETY PRECAUTIONS ARE IN PLACE WITH CALL LIGHT IN REACH AND BED ALARM ACTIVATED. WILLL CONTINUE TO MONITOR.
[2020-12-02 07:38] LABS: ALKALINE PHOSPHATASE 70 u/l (38-126); BUN 19 mg/dL (8-23); CARBON DIOXIDE 31 mmol/l (22-30); SGOT/AST 25 u/l (19-48); TOTAL PROTEIN 4.9 g/dL (6.3-8.2)
[2020-12-02 07:54] LABS: ALBUMIN 2.5 g/dL (3.2-5.0); ANION GAP 8 (6-22 (CALC)); BILIRUBIN, TOTAL 0.4 mg/dL (0.0-1.4); BUN/CREATININE RATIO 38 (12-20 (CALC)); CHLORIDE 89 mmol/l (95-108); CREATININE 0.5 mg/dL (0.7-1.3); GFR > 60 ML/MIN (>=60 (CALC)); GFR FOR AFR.AMER. > 60 ML/MIN (>=60 (CALC)); POTASSIUM 4.4 mmol/l (3.5-5.1); SODIUM 124 mmol/l (137-146)
--- NOTE | 2020-12-02 08:39 | NUR ---
PHYSCIAL THERAPY AT BEDSIDE
--- NOTE | 2020-12-02 08:49 | NUR ---
Pt seen this am for treatment. He was OOB in recliner finishing his breakfast. Pt wanted to know when he was going home. He was ablt to tell therapist name and birthdate but not where he was. Pt stood with mod verbal cues, CGA/min assist and ambulated 2x30' in room with RW. Pt posture was flexed in trunk/hips/knees. Standing wt shifting and static balance performed. LAQ/sitting hip flexion/add/abd performed x 10-20 reps each. Hamstring and calf stretch x 3 reps by therapist. Pt left in chair with bedside tray infront of him, call reeves in reach. Gait belt and non skid socks on during treatment. [facility] 13
--- NOTE | 2020-12-02 09:39 | NUR ---
DR POP AT BEDSIDE
--- NOTE | 2020-12-02 10:32 | NUR ---
CALLED TO COMPLETE MRI SCREENING
--- NOTE | 2020-12-02 10:37 | NUR ---
PT TRANSPORTED TO MRI VIA WHEELCHAIR IN STABLE CONDITION BY [facility] STAFF
--- NOTE | 2020-12-02 12:06 | NUR ---
PT ARRIVED BACK TO [facility] ROOM 280 IN STABLE CONDITON. PT AASSISTED BACK TO RECYLINER. RESPIRATIONS ARE EVEN AND UNLABORED WITH NO DISTRESS NOTED. #20G IN RW REMAINS IN PLACE. PT DENIES OF ANY NEEDS. ALL SAFETY PRECAUTIONS ARE IN PLACE WITH CALL LIGHT IN REACH. WILL CONTINUE TO MONBITOR.
--- NOTE | 2020-12-02 13:19 | NUR ---
AND FAMILY FRIEND AT BEDSIDE, APPROVED BY RADHA
--- NOTE | 2020-12-02 13:44 | NUR ---
AT BEDSIDE. AND PT STATES THAT "INSTEAD OF REHAB, HE CCAN JUST GO HOME AND THEN I WILL TAKE HIM TON REHAB." HANDHOLE MACHINE OPERATOR INFORMED THAT IS NOT POSSIBLE. KATIUSKA,HARISHRP NOTFIED.
--- NOTE | 2020-12-02 14:15 | NUR ---
SIGIFREDO HARPN AT BEDSIDE
--- NOTE | 2020-12-02 15:16 | NUR ---
NEW #20 STARTED IN RAC, SITE APPEARS HEALTHY AND PATENT. #20G IN RW REMOVED WITH CATHATER STILL INTACT. PT TOLERATED WELL. PT DENIE SOF ANY NEEDS AT THIS TIME. ALL SAFETY PRECAUTIONS ARE IN PLACE WITH CALL LIGHT IN REACH. WILL CONTINUE TO MONITOR.
--- NOTE | 2020-12-02 15:53 | NUR ---
PT SLEEPING IN RECYLINER. RESPIRATIONS ARE EVEN AND UNLABORED WITH NO DISRTESS NOTED. #20G IN RAC REMAINS IN PLACE. NO SIGNS OF ANY PAINS OR DISCOMFORTS AT THIS TIME. ALL SAFETY PRECAUTIONS ARE IN PLACE WITH CALL LIGHT IN REACH. WILL CONTINUE TO MONITOR.
[2020-12-02 16:00] VITALS: BP 126/70
--- NOTE | 2020-12-02 18:07 | NUR ---
RECIEVED REPORT FROM RANJAN BEGUM
[2020-12-02 19:00] VITALS: BP 142/63
--- NOTE | 2020-12-02 19:57 | NUR ---
1900 SBAR REPORT RECEIVED FROM [facility]. PATIENT LYING QUIETLY IN BED WATCHING TV. DENIES PAIN AT THIS TIME. NO DISTRESS NOTED, NO CONCERNS EXPRESSED. CALL LIGHT WITHIN REACH.
--- NOTE | 2020-12-03 02:06 | NUR ---
RESTING QUIETLY EYES CLOSED. NO DISTRESS NOTED. CALL LIGHT WITHIN REACH.
[2020-12-03 04:00] VITALS: BP 144/75
[2020-12-03 05:10] LABS: HEMATOCRIT 29.4 % (39.0-50.0); HEMOGLOBIN 9.6 g/dl (14.0-18.0); MEAN CORPUSCULAR HGB 29.7 pG CALC (26.0-32.0); MEAN CORPUSCULAR HGB CONC 32.7 g/dL CAL (32.0-36.0); RED BLOOD COUNT 3.23 mill/uL (4.70-6.10); RED CELL DISTRI WIDTH 13.5 % (11.5-15.5)
[2020-12-03 05:40] LABS: ANION GAP 9 (6-22 (CALC)); BUN 21 mg/dL (8-23); BUN/CREATININE RATIO 38 (12-20 (CALC)); CARBON DIOXIDE 33 mmol/l (22-30); CHLORIDE 88 mmol/l (95-108); CREATININE 0.5 mg/dL (0.7-1.3); GFR > 60 ML/MIN (>=60 (CALC)); GFR FOR AFR.AMER. > 60 ML/MIN (>=60 (CALC)); MAGNESIUM 2.1 mg/dL (1.6-2.3); POTASSIUM 4.1 mmol/l (3.5-5.1); SODIUM 126 mmol/l (137-146)
[2020-12-03 07:58] VITALS: BP 150/74
[2020-12-03 08:14] VITALS: BP 150/74
--- NOTE | 2020-12-03 08:30 | NUR ---
PT RESTING IN THE BED AXOX3. STATES "I CAN TALK BETTER WITH MY TEATH IN". ORAL HYGINE CARE GIVEN. PT INCONT OF URINE. COMPLETE HYGINE CARE GIVEN. NO DISTRESS NOTED AT THIS TIME. REPOSITIONED FOR COMFORT, SIDE RAILS UP CALL LIGHT IN REACH, BED LOCKED IN LOW POSITION, WILL CONTINUE TO MONITOR THE PATIENT.
--- NOTE | 2020-12-03 09:30 | NUR ---
PT HAD A LARGE SOFT BROWN STOOL.
--- NOTE | 2020-12-03 09:40 | NUR ---
Pt sitting up in bed with breakfast set up in front of him. He was finished eating and voiced no complaints, wanted to be washed up. Pt moved supine to sit with min assist using bed rail. He was able to stand from bed at lowest position with verbal cues and min/mod assist. SBA/CGA to stand rom chair with verbal cues for saftey required. Gait with RW/min assist 1x40' and 1x30'. Pt needed verbal and physical assist for turning. LE AROM performed 2x10 reps in sitting. Bilateral HS stretch done by therapist 3 x 15 sec. Pt left in chair with tray/phone and call reeves in reach. Non skid socks and gait belt in place during treatment. Posture remained flexed. [facility] 14.
--- NOTE | 2020-12-03 11:29 | NUR ---
OUT OF THE BED TO THE BEDSIDE CHAIR WITH MIN ASST. PT STATES'I HAVE MY LEGS BACK'. CALL LIGHT IN REACH, ALL SAFTY MEASURES IN PLACE.
--- NOTE | 2020-12-03 12:04 | NUR ---
PT SITTING UP IN THE BEDSIDE CHAIR FOR LUNCH, NO COMPLAINTS VOICED AT THIS TIME. WILL CONTINUE TO MONIOTR THE PATIENT.
[2020-12-03] MEDS ORDERED: SOD CHLORIDE1 GM PO (12:07)
[2020-12-03] MEDS ORDERED: AMLODIPINE BESYL5 MG PO (12:08)
[2020-12-03] MEDS ORDERED: LASIX 40 MG TAB40 MG PO (12:13)
--- NOTE | 2020-12-03 13:27 | NUR ---
PT IS TO BE DISCHARGED TO HOME WITH HOME HEALTH. Sunil GOTTLIEB.
--- NOTE | 2020-12-03 14:05 | NUR ---
PATIENT LEFT WITH HIS IN A WHEELCHAIR TO GO TO HIS OWN HOME WITH PT AND DOCTORS [facility] . GIVEN READING MATERIAL ON A 4GM NA DIET. DISCHARGE ORDERS GIVEN UNDERSTOOD AND SIGNED BY THE PATIENT.-
== END 2020-12-03 14:02 | disposition home health service (06) | DRG 643 ==
LOC: ED 16:19 → ED-I 19:32 → ED 19:53 → MS2 19:54 → ED-I 19:54 → MS2 11-23 12:38
PROVIDERS: Family Medicine; Internal Medicine Nephrology; Nurse Practitioner; Nurse Practitioner Family; ADMIT Internal Medicine; ATTEND Internal Medicine
DX: E22.2 Syndrome of inappropriate secretion of antidiuretic hormone (principal); J18.9 Pneumonia, unspecified organism; G92 Toxic encephalopathy; I10 Essential (primary) hypertension; M19.90 Unspecified osteoarthritis, unspecified site; C61 Malignant neoplasm of prostate; D64.9 Anemia, unspecified; R80.9 Proteinuria, unspecified; R91.1 Solitary pulmonary nodule; H53.2 Diplopia; S00.83XA Contusion of other part of head, initial encounter; W19.XXXA Unspecified fall, initial encounter; Z87.11 Personal history of peptic ulcer disease; Z79.899 Other long term (current) drug therapy; Z72.89 Other problems related to lifestyle; Z20.822 Contact with and (suspected) exposure to COVID-19
CPT/HCPCS: A9579; J1610; J1650; J1756; J3420; Q9967

== ENCOUNTER 2021-09-10 05:38 | Emergency (ER) | payer MEDICARE ==
[~2021-09-10] VITALS: Ht 172.7 cm; Wt 82.0 kg
[~2021-09-10 05:38] MED LIST changes: +AMLODIPINE BESYL5 MG PO; +LASIX 40 MG TAB40 MG PO; +LUPRON DEPOT22.5 MG IM; +SOD CHLORIDE1 GM PO; +TAMSULOSIN0.4 MG PO; +VALSARTAN80 MG PO
[2021-09-10 06:11] LABS: HEMATOCRIT 33.3 % (39.0-50.0); HEMOGLOBIN 11.3 g/dl (14.0-18.0); IMMATURE GRANULOCYTES 0.3 % (0.0-5.0); MEAN CELL VOLUME 90.2 fL CALC (80.0-100.0); MEAN CORPUSCULAR HGB 30.6 pG CALC (26.0-32.0); MEAN CORPUSCULAR HGB CONC 33.9 g/dL CAL (32.0-36.0); NEUT# 5.68 thou/uL (1.82-7.42); RED BLOOD COUNT 3.69 mill/uL (4.70-6.10); RED CELL DISTRI WIDTH 13.1 % (11.5-15.5)
[2021-09-10 06:20] LABS: ALBUMIN 3.9 g/dL (3.2-5.0); ALKALINE PHOSPHATASE 82 u/l (38-126); ANION GAP 13 (6-22 (CALC)); BILIRUBIN, TOTAL 0.4 mg/dL (0.0-1.4); BUN 10 mg/dL (8-23); BUN/CREATININE RATIO 16 (12-20 (CALC)); CARBON DIOXIDE 28 mmol/l (22-30); CHLORIDE 96 mmol/l (95-108); CREATININE 0.6 mg/dL (0.7-1.3); GFR > 60 ML/MIN (>=60 (CALC)); GFR FOR AFR.AMER. > 60 ML/MIN (>=60 (CALC)); POTASSIUM 4.6 mmol/l (3.5-5.1); SGOT/AST 17 u/l (19-48); SODIUM 132 mmol/l (137-146); TOTAL PROTEIN 7.3 g/dL (6.3-8.2)
[2021-09-10 06:31] LABS: MYOGLOBIN 50 ng/mL (0 - 121)
[2021-09-10 06:32] LABS: ACT PARTIAL THROMBO TIME 25.7 SECONDS (20.0-32.5); PROTHROMBIN TIME 10.3 SECONDS (9.0-12.5)
[2021-09-10 08:19] LABS: URINE BILIRUBIN - DIPSTICK NEGATIVE (NEGATIVE); URINE BLOOD DIPSTICK NEGATIVE (NEGATIVE); URINE COLOR YELLOW; URINE GLUCOSE - DIPSTICK NEGATIVE (NEGATIVE); URINE KETONE NEGATIVE (NEGATIVE); URINE LEUK ESTERASE NEGATIVE (NEGATIVE); URINE PROTEIN - DIPSTICK 30 mg/dL (NEG-TRACE); URINE UROBILINOGEN - DIPSTICK 0.2 E.U./dL (0.2)
[2021-09-10 08:22] LABS: URINE NITRITE - DIPSTICK NEGATIVE (Negative)
[2021-09-10 08:23] LABS: URINE RBC 0-2 RBC/hpf (0-5); URINE WBC 0-2 WBC/hpf (0-5)
[2021-09-10 08:25] VITALS: BP 153/74
== END 2021-09-10 08:25 | disposition short-term general hospital (02) ==
LOC: ED 05:38
PROVIDERS: Family Medicine
PROC: 0T9B70Z Drainage of Bladder with Drainage Device, Via Natural or Artificial Opening (ICD-10-PCS; principal; 2021-09-10)
DX: R56.9 Unspecified convulsions (principal); R00.1 Bradycardia, unspecified; I10 Essential (primary) hypertension; Z78.1 Physical restraint status; Z85.46 Personal history of malignant neoplasm of prostate; Z20.822 Contact with and (suspected) exposure to COVID-19
CPT/HCPCS: J1953; J2060

== ENCOUNTER 2021-10-22 05:23 | Emergency (ER) | payer MEDICARE ==
[~2021-10-22] VITALS: Ht 172.7 cm; Wt 81.8 kg
[2021-10-22 06:05] LABS: ALBUMIN 3.7 g/dL (3.2-5.0); ALKALINE PHOSPHATASE 74 u/l (38-126); ANION GAP 13 (6-22 (CALC)); BILIRUBIN, TOTAL 0.3 mg/dL (0.0-1.4); BUN 10 mg/dL (8-23); BUN/CREATININE RATIO 16 (12-20 (CALC)); CARBON DIOXIDE 27 mmol/l (22-30); CHLORIDE 94 mmol/l (95-108); CREATININE 0.7 mg/dL (0.7-1.3); GFR > 60 ML/MIN (>=60 (CALC)); GFR FOR AFR.AMER. > 60 ML/MIN (>=60 (CALC)); POTASSIUM 4.9 mmol/l (3.5-5.1); SGOT/AST 19 u/l (19-48); SODIUM 129 mmol/l (137-146)
[2021-10-22 06:13] LABS: HEMATOCRIT 33.6 % (39.0-50.0); HEMOGLOBIN 11.2 g/dl (14.0-18.0); IMMATURE GRANULOCYTES 0.3 % (0.0-5.0); MEAN CELL VOLUME 89.1 fL CALC (80.0-100.0); MEAN CORPUSCULAR HGB 29.7 pG CALC (26.0-32.0); MEAN CORPUSCULAR HGB CONC 33.3 g/dL CAL (32.0-36.0); NEUT# 4.53 thou/uL (1.82-7.42); RED BLOOD COUNT 3.77 mill/uL (4.70-6.10); RED CELL DISTRI WIDTH 13.9 % (11.5-15.5)
[2021-10-22 06:17] LABS: MYOGLOBIN 29 ng/mL (0 - 121)
[2021-10-22 06:42] VITALS: BP 151/96
[2021-10-22] MEDS ORDERED: KEPPRA500 M2 PO (06:43)
== END 2021-10-22 06:45 | disposition home or self-care (01) ==
LOC: ED 05:23
PROVIDERS: Family Medicine
DX: G40.409 Other generalized epilepsy and epileptic syndromes, not intractable, without status epilepticus (principal); I10 Essential (primary) hypertension; T42.76XA Underdosing of unspecified antiepileptic and sedative-hypnotic drugs, initial encounter; Z91.128 Patient's intentional underdosing of medication regimen for other reason; Z85.46 Personal history of malignant neoplasm of prostate
CPT/HCPCS: J1953

== ENCOUNTER 2022-09-19 18:40 | Emergency (ER) | payer MEDICARE ==
[~2022-09-19] VITALS: Ht 172.7 cm; Wt 83.0 kg
[2022-09-19] VITALS (8 sets, daily range): BP systolic 130–170; BP diastolic 52–76
[~2022-09-19 18:40] MED LIST changes: +KEPPRA500 M2 PO
[2022-09-19] MEDS ORDERED: METOPROLOL5 MG/5 ML IV (19:48)
[2022-09-19] MEDS ORDERED: METOPROL TAR25 MG PO (19:49)
[2022-09-19 21:18] LABS: BASO% 0.2 % (0-3); EOS% 3.6 % (0-8); HEMATOCRIT 29.1 % (39.0-50.0); HEMOGLOBIN 9.8 g/dl (14.0-18.0); IMMATURE GRANULOCYTES 0.5 % (0.0-5.0); LYMPH% 16.1 % (15-41); MEAN CELL VOLUME 87.1 fL CALC (80.0-100.0); MEAN CORPUSCULAR HGB 29.3 pG CALC (26.0-32.0); MEAN CORPUSCULAR HGB CONC 33.7 g/dL CAL (32.0-36.0); MONO% 9.8 % (2-13); NEUT# 6.66 thou/uL (1.82-7.42); NEUT% 69.8 % (42-76); RED BLOOD COUNT 3.34 mill/uL (4.70-6.10); RED CELL DISTRI WIDTH 14.6 % (11.5-15.5)
[2022-09-19 21:25] LABS: ALKALINE PHOSPHATASE 80 u/l (38-126); ANION GAP 13 (6-22 (CALC)); BUN 14 mg/dL (8-23); BUN/CREATININE RATIO 16 (12-20 (CALC)); CARBON DIOXIDE 31 mmol/l (22-30); CHLORIDE 91 mmol/l (95-108); CREATININE 0.9 mg/dL (0.7-1.3); GFR FOR AFR.AMER. > 60 ML/MIN (>=60 (CALC)); GFR OTHER RACES > 60 ML/MIN (>=60 (CALC)); SGOT/AST 19 u/l (19-48); SODIUM 130 mmol/l (137-146); TOTAL PROTEIN 7.7 g/dL (6.3-8.2)
[2022-09-19 21:26] LABS: BILIRUBIN, TOTAL 0.1 mg/dL (0.0-1.4)
[2022-09-19] MEDS ORDERED: ZITHROMAX250 MG PO (21:49)
== END 2022-09-19 22:32 | disposition home or self-care (01) ==
LOC: ED 18:40
PROVIDERS: Emergency Medicine
DX: J06.9 Acute upper respiratory infection, unspecified (principal); I10 Essential (primary) hypertension; G40.909 Epilepsy, unspecified, not intractable, without status epilepticus; Z20.822 Contact with and (suspected) exposure to COVID-19

== ENCOUNTER 2022-11-06 10:13 | Emergency (ER) | payer MEDICARE ==
[~2022-11-06] VITALS: Ht 172.7 cm; Wt 84.1 kg
[~2022-11-06 10:13] MED LIST changes: +METOPROL TAR25 MG PO; +METOPROLOL5 MG/5 ML IV; +ZITHROMAX250 MG PO
[2022-11-06 10:22] VITALS: BP 177/79
[2022-11-06 10:33] VITALS: BP 175/71
[2022-11-06 10:39] LABS: BASO% 0.2 % (0-3); EOS% 1.7 % (0-8); HEMATOCRIT 34.8 % (39.0-50.0); HEMOGLOBIN 11.2 g/dl (14.0-18.0); IMMATURE GRANULOCYTES 0.2 % (0.0-5.0); LYMPH% 8.1 % (15-41); MEAN CELL VOLUME 87.2 fL CALC (80.0-100.0); MEAN CORPUSCULAR HGB 28.1 pG CALC (26.0-32.0); MEAN CORPUSCULAR HGB CONC 32.2 g/dL CAL (32.0-36.0); MONO% 4.5 % (2-13); NEUT# 7.14 thou/uL (1.82-7.42); NEUT% 85.3 % (42-76); RED BLOOD COUNT 3.99 mill/uL (4.70-6.10); RED CELL DISTRI WIDTH 14.9 % (11.5-15.5)
[2022-11-06] MEDS ORDERED: ASPIRIN81 MG PO (10:41)
[2022-11-06 10:42] VITALS: BP 165/69
[2022-11-06 10:46] VITALS: BP 167/73
[2022-11-06 10:57] LABS: PROTHROMBIN TIME 10.1 SECONDS (9.0-12.5)
[2022-11-06 11:01] VITALS: BP 163/64
[2022-11-06 11:20] VITALS: BP 163/64
[2022-11-06 12:04] LABS: ALBUMIN 4.1 g/dL (3.2-5.0); ALKALINE PHOSPHATASE 80 u/l (38-126); ANION GAP 14 (6-22 (CALC)); BUN 13 mg/dL (8-23); BUN/CREATININE RATIO 20 (12-20 (CALC)); CARBON DIOXIDE 24 mmol/l (22-30); CHLORIDE 95 mmol/l (95-108); CREATININE 0.6 mg/dL (0.7-1.3); GFR FOR AFR.AMER. > 60 ML/MIN (>=60 (CALC)); GFR OTHER RACES > 60 ML/MIN (>=60 (CALC)); POTASSIUM 4.7 mmol/l (3.5-5.1); SGOT/AST 23 u/l (19-48); SODIUM 128 mmol/l (137-146); TOTAL PROTEIN 7.8 g/dL (6.3-8.2)
[2022-11-06 12:29] LABS: BILIRUBIN, TOTAL 0.1 mg/dL (0.2-1.3)
== END 2022-11-06 11:20 | disposition short-term general hospital (02) ==
LOC: ED 10:13
PROVIDERS: Emergency Medicine
DX: I61.1 Nontraumatic intracerebral hemorrhage in hemisphere, cortical (principal); I10 Essential (primary) hypertension; H53.8 Other visual disturbances; G40.909 Epilepsy, unspecified, not intractable, without status epilepticus; Z85.46 Personal history of malignant neoplasm of prostate